=== PATIENT | female | born 1960 | race Caucasian/White ===

== ENCOUNTER → 2016-12-25 | Outpatient (CLI) | payer OTHER ==
[~2016-12-25] MED LIST: DULO60CA6 PO; ESTR1TAB21 PO; HYDR50CA3 PO; IBUP400T22 PO
--- NOTE | 2016-12-26 18:51 | Diagnostic Imaging Report ---
EXAMINATION: Bilateral digital screening mammogram with CAD. The current study was also evaluated with a Computer Aided Detection (CAD) system. INDICATION: Screening. No current complaints stated on the questionnaire. COMPARISON: 12/21/14. FINDINGS: The breasts are composed of scattered fibroglandular densities. There are symmetric retroglandular breast implants seen. No mass, architectural distortion or suspicious cluster of calcification is noted. Allowing for technique and positional differences, no suspicious change is seen. IMPRESSION: No significant change. ACR BI-RADS Category 2: Benign findings. Result letter will be mailed to the patient. Note: At least 10% of breast cancer is not imaged by mammography. Dictated by: Dictated on workstation # [id number]
== END ==
LOC: RAD 11:30
PROVIDERS: ATTEND Nurse Practitioner
DX: Z12.31 Encounter for screening mammogram for malignant neoplasm of breast (principal)
CPT/HCPCS: 77067

== ENCOUNTER → 2017-09-22 | Outpatient (CLI) | payer OTHER ==
[2017-09-22 10:20] LABS: HEMOGLOBIN 14.1 G/DL (11.5-16.0); MEAN PLATELET VOLUME 9.2 FL (7.4-10.4); RED BLOOD COUNT 4.64 10^6/uL (4.35-5.85); RED CELL DISTRIBUTION WIDTH 12.9 % (10.0-14.5); WHITE BLOOD COUNT 5.3 10^3/uL (4.3-11.0)
[2017-09-22 10:47] LABS: ALANINE AMINOTRANSFERASE 33 U/L (0-55); ALBUMIN 4.3 GM/DL (3.2-4.5); ALKALINE PHOSPHATASE 67 U/L (40-136); BILIRUBIN,TOTAL 0.5 MG/DL (0.1-1.0); BUN/CREATININE RATIO 18; CALCIUM 9.6 MG/DL (8.5-10.1); CARBON DIOXIDE 23 MMOL/L (21-32); CHLORIDE 106 MMOL/L (98-107); CHOLESTEROL 235 MG/DL (< 200); GFR ESTIMATED > 60; GLUCOSE 86 MG/DL (70-105); HDL CHOLESTEROL 43 MG/DL (40-60); SODIUM 139 MMOL/L (135-145); TOTAL PROTEIN 7.9 GM/DL (6.4-8.2); TRIGLYCERIDES 185 MG/DL (<150); VLDL CHOLESTEROL 37 MG/DL (5-40)
[2017-09-22 11:07] LABS: FREE T4 (FREE THYROXINE) 1.21 NG/DL (0.70-1.48)
== END ==
LOC: LAB 09:54
PROVIDERS: ATTEND Internal Medicine Endocrinology, Diabetes & Metabolism
DX: R53.83 Other fatigue (principal); E66.9 Obesity, unspecified; E55.9 Vitamin D deficiency, unspecified; R73.9 Hyperglycemia, unspecified; E06.3 Autoimmune thyroiditis
CPT/HCPCS: 36415; 80053; 80061; 82306; 82607; 83036; 84439; 84443; 84480; 85027; 86376

== ENCOUNTER → 2018-01-02 | Outpatient (CLI) | payer OTHER ==
--- NOTE | 2018-01-02 13:34 | Diagnostic Imaging Report ---
INDICATION: Routine screening. COMPARISON is made with a prior exam from 12/25/2016 and 12/21/2014. 3D digital tomography bilateral with implants. History: Routine screening Technique: Bilateral 3D digital tomographic views with implants were obtained with [email or web address] and reviewed on a [employer] workstation. In addition, CAD - computer aided detection was utilized. A mammogram does not have 100% sensitivity and therefore a negative imaging study should not delay further work up of a suspicious abnormality. Patient information is entered into the [employer] reminder system using icomply with a target due date for the next screening mammogram. The patient will receive a reminder. "Our facility is accredited by the [employer] Mammography Program." Bilateral breast implants are again noted. Implant contours appear to be smooth. Scattered fibroglandular densities in both breasts are noted. There are calcifications along the implant shell. No dominant mass or malignant appearing microcalcifications are seen. The axillae are unremarkable. IMPRESSION: BI-RADS 2 No mammographic features suspicious for malignancy are identified. Dictated by: Dictated on workstation # [id number]
== END ==
LOC: RAD 09:15
PROVIDERS: ATTEND Nurse Practitioner
DX: Z12.31 Encounter for screening mammogram for malignant neoplasm of breast (principal)
CPT/HCPCS: 77067

== ENCOUNTER → 2018-06-10 | Outpatient (CLI) | payer OTHER ==
[2018-06-10 13:28] LABS: FREE T4 (FREE THYROXINE) 1.19 NG/DL (0.70-1.48)
== END ==
LOC: SDC 12:20
PROVIDERS: ATTEND Internal Medicine Endocrinology, Diabetes & Metabolism
DX: E55.9 Vitamin D deficiency, unspecified (principal); E06.3 Autoimmune thyroiditis
CPT/HCPCS: 36415; 82306; 84439; 84443; 84480

== ENCOUNTER → 2018-07-20 | Outpatient (CLI) | payer OTHER ==
[2018-07-20 16:18] LABS: BUN/CREATININE RATIO 17; CALCIUM 9.9 MG/DL (8.5-10.1); CARBON DIOXIDE 22 MMOL/L (21-32); CHLORIDE 104 MMOL/L (98-107); CREATININE SERUM 0.82 MG/DL (0.60-1.30); GFR ESTIMATED > 60; GLUCOSE 83 MG/DL (70-105); POTASSIUM 3.9 MMOL/L (3.6-5.0); SODIUM 136 MMOL/L (135-145)
== END ==
LOC: LAB 15:43
PROVIDERS: ATTEND Plastic Surgery
DX: Z01.812 Encounter for preprocedural laboratory examination (principal); Z01.82 Encounter for allergy testing
CPT/HCPCS: 36415; 80048

== ENCOUNTER → 2018-12-08 | Outpatient (CLI) | payer OTHER ==
--- NOTE | 2018-12-08 18:50 | Diagnostic Imaging Report ---
INDICATION: Pain 4 months duration FINDINGS: There is grade 1 degenerative anterolisthesis of L3 on L4 of about 2 mm. The remaining levels are aligned normally however there is diminished lumbar lordosis. In frontal projection the spine is held in slight rightward curvature which could be positional. No acute appearing endplate irregularity. There is sclerotic hypertrophy of the mid to lower lumbar facets, progressively more severe as we move caudally. Disc space narrowing greatest at the lumbosacral junction. Fracture could not be identified. IMPRESSION: Spondylosis, facet arthrosis, grade 1 listhesis and mild rightward convexity curvature. No acute appearing abnormality. Normal lumbar statures Dictated by: Dictated on workstation # [id number]
--- NOTE | 2018-12-08 19:20 | Diagnostic Imaging Report ---
INDICATION: Pain FINDINGS: There is no fracture, dislocation or acute appearing articular incongruity. The hip joint space is maintained. No avulsion. IMPRESSION: Unremarkable left hip radiographs. Dictated by: Dictated on workstation # [id number]
== END ==
LOC: RAD 15:36
PROVIDERS: ATTEND Family Medicine
DX: M47.816 Spondylosis without myelopathy or radiculopathy, lumbar region (principal); M43.16 Spondylolisthesis, lumbar region; M43.8X6 Other specified deforming dorsopathies, lumbar region; M25.552 Pain in left hip
CPT/HCPCS: 72100; 73502

== ENCOUNTER → 2018-12-09 | Outpatient (CLI) | payer OTHER ==
[2018-12-09 08:48] LABS: BASOPHILS % (AUTO) 1 % (0-10); EOSINOPHILS # (AUTO) 0.1 10^3/uL (0.0-0.3); EOSINOPHILS % (AUTO) 3 % (0-10); HEMATOCRIT 42 % (35-52); HEMOGLOBIN 14.1 G/DL (11.5-16.0); LYMPHOCYTES # (AUTO) 1.5 X 10^3 (1.0-4.0); LYMPHOCYTES % (AUTO) 33 % (12-44); MEAN CORPUSCULAR HEMOGLOBIN 30 PG (25-34); MEAN CORPUSCULAR HGB CONC 34 G/DL (32-36); MEAN CORPUSCULAR VOLUME 88 FL (80-99); MONOCYTES # (AUTO) 0.5 X 10^3 (0.0-1.0); MONOCYTES % (AUTO) 11 % (0-12); NEUTROPHILS # (AUTO) 2.4 X 10^3 (1.8-7.8); NEUTROPHILS % (AUTO) 53 % (42-75); PLATELET COUNT 399 10^3/uL (130-400); RED CELL DISTRIBUTION WIDTH 13.6 % (10.0-14.5); WHITE BLOOD COUNT 4.6 10^3/uL (4.3-11.0)
[2018-12-09 09:17] LABS: ALANINE AMINOTRANSFERASE 29 U/L (0-55); ALBUMIN 4.3 GM/DL (3.2-4.5); ALKALINE PHOSPHATASE 83 U/L (40-136); BILIRUBIN,TOTAL 0.7 MG/DL (0.1-1.0); BUN/CREATININE RATIO 22; CALCIUM 9.8 MG/DL (8.5-10.1); CARBON DIOXIDE 24 MMOL/L (21-32); CHLORIDE 110 MMOL/L (98-107); CHOLESTEROL 272 MG/DL (< 200); CREATININE SERUM 0.81 MG/DL (0.60-1.30); GFR ESTIMATED > 60; GLUCOSE 94 MG/DL (70-105); HDL CHOLESTEROL 52 MG/DL (40-60); POTASSIUM 4.3 MMOL/L (3.6-5.0); SODIUM 141 MMOL/L (135-145); TOTAL PROTEIN 7.6 GM/DL (6.4-8.2); TRIGLYCERIDES 102 MG/DL (<150); VLDL CHOLESTEROL 20 MG/DL (5-40)
[2018-12-09 09:38] LABS: FREE T4 (FREE THYROXINE) 1.25 NG/DL (0.70-1.48)
== END ==
LOC: LAB 08:21
PROVIDERS: ATTEND Family Medicine
DX: Z00.00 Encounter for general adult medical examination without abnormal findings (principal); I10 Essential (primary) hypertension; E55.9 Vitamin D deficiency, unspecified; R53.83 Other fatigue
CPT/HCPCS: 36415; 80053; 80061; 82306; 82728; 84439; 84443; 85025

== ENCOUNTER → 2019-06-18 | Outpatient (CLI) | payer OTHER ==
--- NOTE | 2019-06-18 10:56 | Diagnostic Imaging Report ---
Indication: Routine screening. Comparison is made with prior mammogram 01/02/2018 and 12/25/2016. 2-D and 3-D bilateral screening mammography was performed with CAD. Since prior study patient has had bilateral breast implants removed. Hyperdense nodule in the region of the axillary tail of the right breast is seen measuring 14 mm. There are smaller hyperdense nodules in the left breast lower aspect. A fairly well circumscribed hyperdense nodule is seen approximately 5 cm deep to the nipple at approximately 6:00 location. Axillae are unremarkable. No suspicious microcalcifications are seen. No other suspicious masses are seen. IMPRESSION: BI-RADS 0 Bilateral hyperdense masses, perhaps lymph nodes containing silicone. Additional views are recommended. ACR BI-RADS Category 0: Incomplete. (Needs additional imaging evaluation). Result letter will be mailed to the patient. Note: At least 10% of breast cancer is not imaged by mammography. Dictated by: Dictated on workstation # [id number]
== END ==
LOC: RAD 07:27
PROVIDERS: ATTEND Nurse Practitioner
DX: Z12.31 Encounter for screening mammogram for malignant neoplasm of breast (principal); Z01.419 Encounter for gynecological examination (general) (routine) without abnormal findings
CPT/HCPCS: 77067

== ENCOUNTER → 2019-06-24 | Outpatient (CLI) | payer OTHER ==
--- NOTE | 2019-06-24 08:39 | Diagnostic Imaging Report ---
INDICATION: Bilateral breast densities. Study is performed for further evaluation. Correlation is made with recent screening study from 06/18/2019. 2-D and 3-D bilateral diagnostic mammography was performed. This includes bilateral 90 degree lateral view as well as a right exaggerated CC view as well as spot compression CC and ML and right MLO views. There is a hyperdense mass in the upper and slightly outer aspect of the right breast, posterior depth, suggestive of a lymph node. This may contain silicone. There are 2 tiny densities in the left breast. One density is 5 cm from the nipple inferiorly approximately 6:00 location. A 2nd tiny density is more posterior in the lower and slightly inner left breast 7 cm from the nipple. These are hyperdense as well and may represent silicone lymph nodes. No suspicious calcifications are seen. IMPRESSION: BI-RADS Category 0 Bilateral hyperdense masses suggestive of silicone lymphadenopathy. Further evaluation with ultrasound is recommended and will be performed today. ACR BI-RADS Category 0: Incomplete. (Needs additional imaging evaluation). Result letter will be mailed to the patient. Note: At least 10% of breast cancer is not imaged by mammography. Dictated by: Dictated on workstation # [id number]
--- NOTE | 2019-06-24 10:37 | Diagnostic Imaging Report ---
INDICATION: Bilateral breast densities. Correlation is made with diagnostic mammogram earlier the same day and screening mammogram from 06/18/2019. Right breast: There is a circumscribed mass at the 10:00 location of the right breast, 8 cm from the nipple measuring 17 mm x 15 mm x 9 mm. This does shows a moderate amount of internal echogenicity and most likely represents a lymph node. No internal vascularity is seen. This likely accounts for the hyperdense mass noted mammographically. Left breast: There are 2 small circumscribed hypoechoic masses in the left breast corresponding with the mammographic densities. 1st lesion is at the 6:00 location, 5 cm from the nipple measuring 6 mm x 4 mm x 4 mm. This demonstrates some posterior acoustic enhancement and may represent small cysts. A 2nd nodule is more deep in the left breast 9:00 location approximately 6 cm from the nipple measuring 7 mm x 5 mm x 6 mm. This is more difficult to characterize due to its deep nature but may represent a small cyst as well. No other abnormalities are seen. IMPRESSION: BI-RADS 3 Bilateral breast nodules. These all have fairly benign characteristics but follow-up bilateral mammogram and bilateral breast ultrasound in 6 months is recommended to confirm stability. ACR BI-RADS Category 3: Probably benign findings. Dictated by: Dictated on workstation # [id number]
== END ==
LOC: RAD 08:05
PROVIDERS: ATTEND Nurse Practitioner
DX: N63.10 Unspecified lump in the right breast, unspecified quadrant (principal); N63.20 Unspecified lump in the left breast, unspecified quadrant
CPT/HCPCS: 76642; 77066

== ENCOUNTER → 2019-07-09 | Outpatient (CLI) | payer OTHER ==
[2019-07-09 09:59] LABS: CHOLESTEROL 175 MG/DL (< 200); HDL CHOLESTEROL 51 MG/DL (40-60); TRIGLYCERIDES 84 MG/DL (<150); VLDL CHOLESTEROL 17 MG/DL (5-40)
== END ==
LOC: LAB 09:25
PROVIDERS: ATTEND Family Medicine
DX: Z13.220 Encounter for screening for lipoid disorders (principal); I10 Essential (primary) hypertension
CPT/HCPCS: 36415; 80061

== ENCOUNTER → 2019-07-13 | Outpatient (CLI) | payer OTHER ==
[2019-07-13 08:45] LABS: FREE T4 (FREE THYROXINE) 1.16 NG/DL (0.70-1.48)
== END ==
LOC: LAB 07:45
PROVIDERS: ATTEND Internal Medicine Endocrinology, Diabetes & Metabolism
DX: E55.9 Vitamin D deficiency, unspecified (principal); E06.3 Autoimmune thyroiditis
CPT/HCPCS: 36415; 82306; 84439; 84443; 84480; 86376

== ENCOUNTER → 2019-10-07 | Outpatient (CLI) | payer OTHER ==
[2019-10-07 12:58] LABS: ALANINE AMINOTRANSFERASE 35 U/L (0-55); ALBUMIN 4.6 GM/DL (3.2-4.5); ALKALINE PHOSPHATASE 84 U/L (40-136); BILIRUBIN,TOTAL 0.4 MG/DL (0.1-1.0); BUN/CREATININE RATIO 13; CALCIUM 9.8 MG/DL (8.5-10.1); CARBON DIOXIDE 19 MMOL/L (21-32); CHLORIDE 108 MMOL/L (98-107); CREATININE SERUM 0.76 MG/DL (0.60-1.30); GFR ESTIMATED > 60; GLUCOSE 96 MG/DL (70-105); SODIUM 139 MMOL/L (135-145); TOTAL PROTEIN 8.1 GM/DL (6.4-8.2)
--- NOTE | 2019-10-07 13:24 | Diagnostic Imaging Report ---
PROCEDURE: US Renal Bilateral. TECHNIQUE: Multiple real-time grayscale images were obtained over the kidneys in various projections bilaterally. INDICATION: Gross hematuria and back pain. FINDINGS: Right kidney measures 9.7 x 5.0 x 4.1 cm and the left kidney measures 10.8 x 5.0 x 5.6 cm. There are several echogenic foci within the right kidney, suggestive of nonobstructing calculi. Largest measures 4 mm. No hydronephrosis is seen. Left kidney is unremarkable. The cortical thickness and echogenicity is normal. IMPRESSION: Nonobstructing right renal calculi. No hydronephrosis is detected. Dictated by: Dictated on workstation # [id number]
== END ==
LOC: RAD 12:26
PROVIDERS: ATTEND Nurse Practitioner Family
DX: N20.0 Calculus of kidney (principal); R31.0 Gross hematuria
CPT/HCPCS: 36415; 76770; 80053; 80069

== ENCOUNTER → 2019-10-14 | Outpatient (CLI) | payer OTHER ==
--- NOTE | 2019-10-14 14:18 | Diagnostic Imaging Report ---
PATIENT NAME: Noelle SPANGLER INDICATION: Dark urine, pain on left side. TECHNIQUE: Single supine view of the abdomen 12:40 PM CORRELATION STUDY: None FINDINGS: Cholecystectomy clips in the right upper quadrant. There are 2 small punctate calcifications in the left hemipelvis, either of which could potentially reflect a small distal ureteral stone. Bowel gas pattern appearing nonobstructed. Likely prior hernia repair surgery over the pubic rami/symphysis. Mild rightward curvature of thoracolumbar spine. IMPRESSION: 1. Small punctate calcifications left hemipelvis. Either of these could potentially reflect a distal left ureteral stone. Given symptoms, if further imaging evaluation desired, renal colic CT imaging would be recommended Dictated by: Dictated on workstation # [id number]
== END ==
LOC: RAD 12:07
PROVIDERS: ATTEND Urology
DX: N20.0 Calculus of kidney (principal)
CPT/HCPCS: 74018

== ENCOUNTER → 2019-10-15 | Outpatient (CLI) | payer OTHER ==
--- NOTE | 2019-10-15 14:42 | Diagnostic Imaging Report ---
PROCEDURE: CT abdomen and pelvis without contrast. TECHNIQUE: Multiple contiguous axial images were obtained through the abdomen and pelvis without the use of intravenous contrast. Auto Exposure Controls were utilized during the CT exam to meet ALARA standards for radiation dose reduction. INDICATION: Hematuria. History of right-sided kidney stones. COMPARISON: None. FINDINGS: Included portions of the lung bases are clear. Note is made of partially visualized fluid collection in the inferior right breast that measures 1.8 x 4.4 cm (image 1, series 2). CT ABDOMEN: Normal appendix cannot be adequately identified, but there is no pericecal inflammation. Small bowel loops are nondistended. Small calculus is identified at the left UPJ and measures 3 mm in diameter (image 32, series 2). Despite this, there is no hydronephrosis or other evidence of obstruction. No other renal or ureteral calculi are seen on either side. Kidneys have an otherwise unremarkable noncontrast CT appearance. Liver is diffusely hypodense on this noncontrast exam consistent with underlying hepatic steatosis. The adrenal glands, spleen, and pancreas have an unremarkable noncontrast CT appearance. There is no loculated fluid collection, free fluid, nor free air within the abdomen. No abnormal mesenteric or retroperitoneal adenopathy is seen. Mild scattered calcified aortic and arterial atherosclerosis is noted. Osseous structures show no acute abnormalities. CT PELVIS: Urinary bladder is unopacified and nondistended. No calculi are seen within the urinary bladder. There is no loculated fluid collection, free fluid, nor free air within the pelvis. No abnormal lymph nodes are identified. Osseous structures show no acute abnormalities. IMPRESSION: 1. Small 3 mm calculus at the left UPJ without significant proximal hydronephrosis. 2. Hepatic steatosis. 3. Partially visualized fluid collection within the inferior right breast. Correlation with surgical history is recommended. If further evaluation is indicated, mammogram and ultrasound is advised. Dictated by: Dictated on workstation # [id number]
== END ==
LOC: RAD 13:03
PROVIDERS: ATTEND Urology
DX: N20.0 Calculus of kidney (principal); K76.0 Fatty (change of) liver, not elsewhere classified
CPT/HCPCS: 74176

== ENCOUNTER 2020-01-19 14:30 | Outpatient (RCR) | payer OTHER ==
[2020-01-13 10:08] LABS: BASOPHILS % (AUTO) 1 % (0-10); EOSINOPHILS # (AUTO) 0.1 10^3/uL (0.0-0.3); EOSINOPHILS % (AUTO) 1 % (0-10); HEMATOCRIT 43 % (35-52); HEMOGLOBIN 14.5 G/DL (11.5-16.0); LYMPHOCYTES # (AUTO) 1.6 X 10^3 (1.0-4.0); LYMPHOCYTES % (AUTO) 39 % (12-44); MEAN CORPUSCULAR HEMOGLOBIN 30 PG (25-34); MEAN CORPUSCULAR HGB CONC 34 G/DL (32-36); MEAN CORPUSCULAR VOLUME 90 FL (80-99); MEAN PLATELET VOLUME 8.9 FL (7.4-10.4); MONOCYTES # (AUTO) 0.3 X 10^3 (0.0-1.0); MONOCYTES % (AUTO) 8 % (0-12); NEUTROPHILS # (AUTO) 2.1 X 10^3 (1.8-7.8); NEUTROPHILS % (AUTO) 51 % (42-75); PLATELET COUNT 375 10^3/uL (130-400); RED CELL DISTRIBUTION WIDTH 13.7 % (10.0-14.5); WHITE BLOOD COUNT 4.1 10^3/uL (4.3-11.0)
[2020-01-13 10:35] LABS: ALANINE AMINOTRANSFERASE 30 U/L (0-55); ALBUMIN 4.5 GM/DL (3.2-4.5); ALKALINE PHOSPHATASE 76 U/L (40-136); BILIRUBIN,TOTAL 0.5 MG/DL (0.1-1.0); BUN/CREATININE RATIO 20; CALCIUM 9.6 MG/DL (8.5-10.1); CARBON DIOXIDE 24 MMOL/L (21-32); CHLORIDE 104 MMOL/L (98-107); CHOLESTEROL 194 MG/DL (< 200); CREATININE SERUM 0.82 MG/DL (0.60-1.30); GFR ESTIMATED > 60; GLUCOSE 96 MG/DL (70-105); HDL CHOLESTEROL 59 MG/DL (40-60); MAGNESIUM 2.1 MG/DL (1.6-2.4); PHOSPHORUS 3.3 MG/DL (2.3-4.7); POTASSIUM 4.1 MMOL/L (3.6-5.0); SODIUM 139 MMOL/L (135-145); TOTAL PROTEIN 7.8 GM/DL (6.4-8.2); TRIGLYCERIDES 109 MG/DL (<150); URIC ACID 7.2 MG/DL (2.6-7.2); VLDL CHOLESTEROL 22 MG/DL (5-40)
[2020-01-13 10:57] LABS: FREE T4 (FREE THYROXINE) 1.15 NG/DL (0.70-1.48)
== END 2020-04-12 | disposition home or self-care (01) ==
LOC: LAB 14:30 → EDSTATUS 14:48
PROVIDERS: ATTEND Family Medicine
DX: Z00.00 Encounter for general adult medical examination without abnormal findings (principal); E78.5 Hyperlipidemia, unspecified; E03.9 Hypothyroidism, unspecified; R53.83 Other fatigue; I10 Essential (primary) hypertension; E55.9 Vitamin D deficiency, unspecified; G62.9 Polyneuropathy, unspecified; Z83.2 Family history of diseases of the blood and blood-forming organs and certain disorders involving the immune mechanism
CPT/HCPCS: 36415; 80053; 80061; 82306; 82728; 83036; 83540; 83735; 83970; 84100; 84255; 84439; 84443; 84550; 85025

== ENCOUNTER → 2020-01-26 | Outpatient (CLI) | payer OTHER ==
[2020-01-26 12:11] LABS: ALBUMIN 4.4 GM/DL (3.2-4.5); CHLORIDE 108 MMOL/L (98-107); POTASSIUM 4.1 MMOL/L (3.6-5.0); SODIUM 140 MMOL/L (135-145)
[2020-01-26 12:12] LABS: CALCIUM 9.3 MG/DL (8.5-10.1)
[2020-01-26 12:13] LABS: GLUCOSE 89 MG/DL (70-105)
[2020-01-26 12:14] LABS: TOTAL PROTEIN 7.6 GM/DL (6.4-8.2)
[2020-01-26 12:15] LABS: BILIRUBIN,TOTAL 0.5 MG/DL (0.1-1.0); CARBON DIOXIDE 23 MMOL/L (21-32)
[2020-01-26 12:17] LABS: ALKALINE PHOSPHATASE 75 U/L (40-136); CREATININE SERUM 0.77 MG/DL (0.60-1.30); GFR ESTIMATED > 60; PHOSPHORUS 3.4 MG/DL (2.3-4.7)
[2020-01-26 12:18] LABS: BUN/CREATININE RATIO 17
[2020-01-26 12:20] LABS: ALANINE AMINOTRANSFERASE 27 U/L (0-55); MAGNESIUM 2.3 MG/DL (1.6-2.4)
== END ==
LOC: LAB 11:22
PROVIDERS: ATTEND Internal Medicine Endocrinology, Diabetes & Metabolism
DX: R79.89 Other specified abnormal findings of blood chemistry (principal)
CPT/HCPCS: 36415; 80053; 83735; 83970; 84100

== ENCOUNTER → 2020-02-08 | Outpatient (CLI) | payer OTHER ==
--- NOTE | 2020-02-08 11:44 | Diagnostic Imaging Report ---
INDICATION: Postmenopausal screening for osteoporosis. COMPARISON: None FINDINGS: AP Spine L1-L4: [BMD (g/cm2): 1.006] [T-Score: -1.6] [Z-Score: -1.2] [BMD Previous: 1.199] [BMD % Change: -16.1] LT Hip Neck: [BMD (g/cm2): 0.820] [T-Score: -1.6] [Z-Score: -0.8] LT Hip Total: [BMD (g/cm2):0.839] [T-Score:-1.3] [Z-Score: -1.0] [BMD Previous: 0.944] [BMD % Change: -11.1] RT Hip Neck: [BMD (g/cm2):0.815] [T-Score:-1.6] [Z-Score:-0.9] RT Hip Total: [BMD (g/cm2):0.810] [T-score:-1.6] [Z-Score:-1.2] [BMD Previous:0.921] [BMD % Change:-12.1] *Indicates significant change from prior examination based on 95% confidence level. World Health Organization criteria for BMD interpretation classify patients as Normal (T-score at or above -1.0), Osteopenic (T-score between -1.0 and -2.5) or Osteoporotic (T-score at or below -2.5). LIMITATIONS AND MODIFICATION: None. FRACTURE RISK (FRAX SCORE): The ten year probability of (%): Major Osteoporotic Fracture: [7.4] Hip Fracture: [0.6] IMPRESSION: 1. Osteopenia (Low bone mass). 2. Baseline examination. 3. See below National Osteoporosis Foundation guidelines on when to potentially initiate pharmacologic therapy. Based on the National Osteoporosis Foundation Guidelines, pharmacologic treatment should be initiated in any of the following, unless clinical conditions suggest otherwise: * Any patient with prior fragility fracture of the hip or vertebrae. A spine fracture indicates 5X risk for subsequent spine fracture and 2X risk for subsequent hip fracture. * Osteoporosis (T-score <-2.5). * Postmenopausal women and men age 50 and older with low bone mass/osteopenia (T-score between -1.0 and -2.5) by DXA and 10-year major osteoporotic fracture greater than 20% or a 10-year probability of hip fracture greater than 3%. These fracture risks are supplied above in the FRAX score, if applicable. * Clinician judgement and/or patient preferences may indicate treatment for people with 10-year fracture probabilities above or below these levels. Dictated by: Dictated on workstation # [id number]
== END ==
LOC: RAD 10:08
PROVIDERS: ATTEND Internal Medicine Endocrinology, Diabetes & Metabolism
DX: Z13.820 Encounter for screening for osteoporosis (principal); M85.80 Other specified disorders of bone density and structure, unspecified site; R79.89 Other specified abnormal findings of blood chemistry; Z78.0 Asymptomatic menopausal state
CPT/HCPCS: 77080

== ENCOUNTER → 2020-03-09 | Outpatient (CLI) | payer OTHER ==
[~2020-03-09] MED LIST changes: +HOLD METFORMIN - RECEIVED CONTRAST 20 ML VIAL IV SCH; +IOHEXOL 350 MG/ML 100 ML (OMNIPAQUE 350) VIAL IV ONE; +NS 100 ML (IVPB) BAG IV ONE
--- NOTE | 2020-03-09 08:54 | Diagnostic Imaging Report ---
PROCEDURE: CT neck soft tissue with contrast. TECHNIQUE: Multiple contiguous axial images were obtained through the neck after the administration of contrast. Auto Exposure Controls were utilized during the CT exam to meet ALARA standards for radiation dose reduction. INDICATION: Elevated parathyroid hormone. Hypercalcemia. COMPARISON: None FINDINGS: Normal thyroid gland. No enhancing mass about the thyroid or upper mediastinum suspicious for a parathyroid adenoma. No fluid collections or lymphadenopathy in the neck. The pharyngeal and laryngeal soft tissues are symmetric bilaterally with no suspicious mass or enhancement. Normal floor of the mouth, tongue base and epiglottis. No retropharyngeal fluid. The major salivary glands are unremarkable. The cervical carotid and vertebral arteries are grossly patent on this non-angiographic exam. The visualized intracranial contents are negative. Paranasal sinuses and mastoids are clear. Normal alignment of the temporomandibular joints. Mild spondylotic changes in the cervical spine without acute findings. The lung apices are clear. IMPRESSION: 1. No acute CT findings in the neck. 2. No enhancing mass suspicious for a parathyroid adenoma in the neck or upper mediastinum. Dictated by: Dictated on workstation # [id number]
== END ==
LOC: RAD 07:49
PROVIDERS: ATTEND Internal Medicine Endocrinology, Diabetes & Metabolism
DX: E83.52 Hypercalcemia (principal)
CPT/HCPCS: 70491

== ENCOUNTER → 2020-03-27 | Outpatient (CLI) | payer OTHER ==
[~2020-03-27] MED LIST changes: -HOLD METFORMIN - RECEIVED CONTRAST 20 ML VIAL IV SCH; -IOHEXOL 350 MG/ML 100 ML (OMNIPAQUE 350) VIAL IV ONE; -NS 100 ML (IVPB) BAG IV ONE
[2020-03-27 07:36] LABS: ALBUMIN 4.1 GM/DL (3.2-4.5); CHLORIDE 110 MMOL/L (98-107); POTASSIUM 3.9 MMOL/L (3.6-5.0); SODIUM 140 MMOL/L (135-145)
[2020-03-27 07:37] LABS: CALCIUM 8.9 MG/DL (8.5-10.1)
[2020-03-27 07:38] LABS: GLUCOSE 99 MG/DL (70-105); TOTAL PROTEIN 7.3 GM/DL (6.4-8.2)
[2020-03-27 07:40] LABS: BILIRUBIN,TOTAL 0.5 MG/DL (0.1-1.0); CARBON DIOXIDE 20 MMOL/L (21-32)
[2020-03-27 07:42] LABS: ALKALINE PHOSPHATASE 72 U/L (40-136); GFR ESTIMATED > 60; PHOSPHORUS 3.1 MG/DL (2.3-4.7)
[2020-03-27 07:43] LABS: BUN/CREATININE RATIO 25
[2020-03-27 07:45] LABS: ALANINE AMINOTRANSFERASE 19 U/L (0-55); MAGNESIUM 2.1 MG/DL (1.6-2.4)
== END ==
LOC: LAB 07:07
PROVIDERS: ATTEND Internal Medicine Endocrinology, Diabetes & Metabolism
DX: N20.0 Calculus of kidney (principal)
CPT/HCPCS: 36415; 80053; 82306; 82330; 83735; 83970; 84100

== ENCOUNTER → 2020-05-17 | Outpatient (CLI) | payer OTHER ==
[2020-05-17 10:18] LABS: ALANINE AMINOTRANSFERASE 23 U/L (0-55); ALBUMIN 4.3 GM/DL (3.2-4.5); ALKALINE PHOSPHATASE 80 U/L (40-136); BILIRUBIN,TOTAL 0.5 MG/DL (0.1-1.0); BUN/CREATININE RATIO 14; CALCIUM 9.5 MG/DL (8.5-10.1); CARBON DIOXIDE 24 MMOL/L (21-32); CHLORIDE 109 MMOL/L (98-107); GFR ESTIMATED > 60; GLUCOSE 97 MG/DL (70-105); MAGNESIUM 1.8 MG/DL (1.6-2.4); POTASSIUM 3.9 MMOL/L (3.6-5.0); SODIUM 140 MMOL/L (135-145); TOTAL PROTEIN 7.8 GM/DL (6.4-8.2)
== END ==
LOC: SDC 08:56
PROVIDERS: ATTEND Internal Medicine Endocrinology, Diabetes & Metabolism
DX: E55.9 Vitamin D deficiency, unspecified (principal)
CPT/HCPCS: 36415; 80053; 82306; 83735; 83970; 84100

== ENCOUNTER → 2020-07-24 | Outpatient (CLI) | payer OTHER ==
[2020-07-24 12:23] LABS: CHLORIDE 106 MMOL/L (98-107); POTASSIUM 3.9 MMOL/L (3.6-5.0); SODIUM 138 MMOL/L (135-145)
[2020-07-24 12:24] LABS: CALCIUM 9.5 MG/DL (8.5-10.1)
[2020-07-24 12:25] LABS: GLUCOSE 87 MG/DL (70-105)
[2020-07-24 12:26] LABS: CARBON DIOXIDE 21 MMOL/L (21-32)
[2020-07-24 12:28] LABS: CREATININE SERUM 0.79 MG/DL (0.60-1.30); GFR ESTIMATED > 60
[2020-07-24 12:29] LABS: BUN/CREATININE RATIO 24
== END ==
LOC: LAB 11:52
PROVIDERS: ATTEND Internal Medicine Endocrinology, Diabetes & Metabolism
DX: E83.52 Hypercalcemia (principal); E55.9 Vitamin D deficiency, unspecified
CPT/HCPCS: 36415; 80048; 82306; 83970

== ENCOUNTER → 2020-08-28 | Outpatient (CLI) | payer OTHER ==
--- NOTE | 2020-08-28 15:29 | Diagnostic Imaging Report ---
INDICATION: Abnormal mammogram. CORRELATION is made with diagnostic mammogram from earlier the same day. At the 6:00 location of the left breast, 5 cm from the nipple, there is an area of somewhat ovoid increased echogenicity which may represent silicone. This measures 9 mm x 8 mm x 9 mm. No internal vascularity is seen. This most likely accounts for the area of ovoid density in the inferior portion of the left breast on mammography. No other sonographic abnormalities are seen. Specifically, no abnormality is identified to account for the density noted deep in the left breast and slightly medial. This most likely represent an area of silicone as well. No other abnormalities are seen. IMPRESSION: BI-RADS Category 3 Probable silicone at the 6:00 location, 5 cm from the nipple accounting for the ovoid density noted mammographically. The deeper density noted mammographically is not visualized sonographically. Continued follow-up left mammogram in 6 months is recommended to show continued stability. ACR BI-RADS Category 3: Probably benign findings. Result letter will be mailed to the patient. Note: At least 10% of breast cancer is not imaged by mammography. Dictated by: Dictated on workstation # [id number]
--- NOTE | 2020-08-28 16:10 | Diagnostic Imaging Report ---
Indication: Patient is status post bilateral breast implant removal. Patient has undergone seroma aspiration of the right breast in 2019 at [facility]. Study is performed for followup. Correlation is made with prior mammograms from 06/18/2019 and 01/02/2018. 2-D and 3-D bilateral diagnostic mammography was performed with CAD. Scattered fibroglandular densities are identified bilaterally. Previously noted implants have been removed. Minimal residual density in the far posterior right breast is seen consistent with known seroma. This has reduced in size since prior. There are 2 nodular densities in the left breast, a density noted in the lower slightly inner left breast 5 cm from the nipple is noted. There is a lobulated density in the far posterior left breast approximate 7 to 8 cm from the nipple and slightly inner. These have fairly benign characteristics but ultrasound of these areas is recommended. No malignant-appearing microcalcifications are seen. Axillae are unremarkable. IMPRESSION: BI-RADS Category 0 Nodular densities in the left breast, as described. Further evaluation with ultrasound is recommended and will be performed today. ACR BI-RADS Category 0: Incomplete. (Needs additional imaging evaluation). Result letter will be mailed to the patient. Note: At least 10% of breast cancer is not imaged by mammography. Dictated by: Dictated on workstation # [id number]
== END ==
LOC: RAD 12:46
PROVIDERS: ATTEND Nurse Practitioner
DX: N63.24 Unspecified lump in the left breast, lower inner quadrant (principal)
CPT/HCPCS: 76642; 77066; G0279; 77062

== ENCOUNTER → 2020-09-25 | Outpatient (CLI) | payer OTHER ==
[2020-09-25 08:04] LABS: ALANINE AMINOTRANSFERASE 36 U/L (0-55); ALBUMIN 4.3 GM/DL (3.2-4.5); ALKALINE PHOSPHATASE 68 U/L (40-136); BILIRUBIN,TOTAL 0.5 MG/DL (0.1-1.0); BUN/CREATININE RATIO 15; CALCIUM 9.5 MG/DL (8.5-10.1); CARBON DIOXIDE 21 MMOL/L (21-32); CHLORIDE 107 MMOL/L (98-107); CREATININE SERUM 0.84 MG/DL (0.60-1.30); GFR ESTIMATED > 60; GLUCOSE 97 MG/DL (70-105); PHOSPHORUS 3.3 MG/DL (2.3-4.7); SODIUM 139 MMOL/L (135-145); TOTAL PROTEIN 7.8 GM/DL (6.4-8.2)
== END ==
LOC: LAB 07:25
PROVIDERS: ATTEND Internal Medicine Endocrinology, Diabetes & Metabolism
DX: E83.52 Hypercalcemia (principal); E06.3 Autoimmune thyroiditis; R79.89 Other specified abnormal findings of blood chemistry
CPT/HCPCS: 36415; 80053; 82306; 83735; 83970; 84100; 84443

== ENCOUNTER → 2020-11-07 | Outpatient (CLI) | payer OTHER | LOC: LABNPT 05:59 | PROVIDERS: ATTEND Family Medicine | DX: Z01.812 Encounter for preprocedural laboratory examination (principal); Z20.822 Contact with and (suspected) exposure to COVID-19 | CPT/HCPCS: 87635 ==

== ENCOUNTER → 2021-01-18 | Outpatient (CLI) | payer OTHER ==
[2021-01-18 08:59] LABS: BASOPHILS % (AUTO) 1 % (0-10); EOSINOPHILS # (AUTO) 0.1 10^3/uL (0.0-0.3); EOSINOPHILS % (AUTO) 2 % (0-10); HEMATOCRIT 40 % (35-52); HEMOGLOBIN 13.4 g/dL (11.5-16.0); LYMPHOCYTES # (AUTO) 1.5 10^3/uL (1.0-4.0); LYMPHOCYTES % (AUTO) 33 % (12-44); MEAN CORPUSCULAR HEMOGLOBIN 31 pg (25-34); MEAN CORPUSCULAR HGB CONC 34 g/dL (32-36); MEAN CORPUSCULAR VOLUME 90 fL (80-99); MEAN PLATELET VOLUME 8.9 fL (9.0-12.2); MONOCYTES # (AUTO) 0.5 10^3/uL (0.0-1.0); MONOCYTES % (AUTO) 10 % (0-12); NEUTROPHILS # (AUTO) 2.5 10^3/uL (1.8-7.8); NEUTROPHILS % (AUTO) 54 % (42-75); PLATELET COUNT 353 10^3/uL (130-400); WHITE BLOOD COUNT 4.5 10^3/uL (4.3-11.0)
[2021-01-18 09:18] LABS: ALANINE AMINOTRANSFERASE 32 U/L (0-55); ALKALINE PHOSPHATASE 58 U/L (40-136); BILIRUBIN,TOTAL 0.5 MG/DL (0.1-1.0); BUN/CREATININE RATIO 24; CALCIUM 7.9 MG/DL (8.5-10.1); CARBON DIOXIDE 26 MMOL/L (21-32); CHLORIDE 103 MMOL/L (98-107); CHOLESTEROL 232 MG/DL (< 200); CREATININE SERUM 0.82 MG/DL (0.60-1.30); GFR ESTIMATED > 60; GLUCOSE 94 MG/DL (70-105); HDL CHOLESTEROL 41 MG/DL (40-60); MAGNESIUM 1.9 MG/DL (1.6-2.4); POTASSIUM 3.6 MMOL/L (3.6-5.0); SODIUM 137 MMOL/L (135-145); TOTAL PROTEIN 7.8 GM/DL (6.4-8.2); TRIGLYCERIDES 132 MG/DL (<150); VLDL CHOLESTEROL 26 MG/DL (5-40)
[2021-01-18 09:40] LABS: FREE T4 (FREE THYROXINE) 0.92 NG/DL (0.70-1.48)
== END ==
LOC: LAB 08:35
PROVIDERS: ATTEND Family Medicine
DX: Z00.00 Encounter for general adult medical examination without abnormal findings (principal); E03.9 Hypothyroidism, unspecified; M25.50 Pain in unspecified joint; I25.10 Atherosclerotic heart disease of native coronary artery without angina pectoris; R53.83 Other fatigue; Z78.0 Asymptomatic menopausal state
CPT/HCPCS: 36415; 80053; 80061; 82306; 82627; 82670; 83090; 83525; 83735; 84144; 84403; 84439; 84443; 84481; 85025; 86141

== ENCOUNTER → 2021-02-26 | Outpatient (CLI) | payer OTHER ==
[2021-02-26 16:27] LABS: ALBUMIN 4.4 GM/DL (3.2-4.5); CHLORIDE 100 MMOL/L (98-107); POTASSIUM 3.4 MMOL/L (3.6-5.0); SODIUM 136 MMOL/L (135-145)
[2021-02-26 16:29] LABS: CALCIUM 9.1 MG/DL (8.5-10.1)
[2021-02-26 16:30] LABS: GLUCOSE 81 MG/DL (70-105)
[2021-02-26 16:31] LABS: CARBON DIOXIDE 22 MMOL/L (21-32)
[2021-02-26 16:32] LABS: BILIRUBIN,TOTAL 0.5 MG/DL (0.1-1.0)
[2021-02-26 16:33] LABS: ALKALINE PHOSPHATASE 63 U/L (40-136); PHOSPHORUS 4.4 MG/DL (2.3-4.7)
[2021-02-26 16:34] LABS: CREATININE SERUM 0.85 MG/DL (0.60-1.30); GFR ESTIMATED > 60
[2021-02-26 16:35] LABS: BUN/CREATININE RATIO 26
[2021-02-26 16:36] LABS: ALANINE AMINOTRANSFERASE 25 U/L (0-55)
--- NOTE | 2021-02-26 17:36 | Diagnostic Imaging Report ---
INDICATION: History of nephrolithiasis. COMPARISON: 10/14/2019 FINDINGS: Single frontal radiographic view of the abdomen was obtained. Small bowel loops are nondistended. Mild to moderate colonic air and stool is noted. There is no large collection of free intraperitoneal air. No unexpected extraosseous calcifications or radiopaque foreign bodies are seen. Osseous structures show no acute abnormalities. IMPRESSION: 1. Nonobstructive small bowel gas pattern. 2. Mild to moderate colonic air and stool. Dictated by: Dictated on workstation # [id number]
== END ==
LOC: LAB 15:48
PROVIDERS: ATTEND Internal Medicine Endocrinology, Diabetes & Metabolism
DX: N20.0 Calculus of kidney (principal); E89.2 Postprocedural hypoparathyroidism; R73.9 Hyperglycemia, unspecified
CPT/HCPCS: 36415; 74018; 80053; 83036; 83970; 84100

== ENCOUNTER → 2021-03-05 | Outpatient (CLI) | payer OTHER ==
--- NOTE | 2021-03-05 13:38 | Diagnostic Imaging Report ---
INDICATION: Six-month followup left breast densities. COMPARISON: 08/28/2020 and 06/18/2019. TECHNIQUE: Unilateral left 2D and 3D diagnostic mammography was performed with CAD. FINDINGS: The inferiorly located density at mid depth in the left breast is stable. The more posteriorly located density near the chest wall also appears to be stable. These again may represent free silicone. No new mass is detected. No malignant appearing microcalcifications are identified. The left axilla is unremarkable. IMPRESSION: Stable left mammogram. Continued followup left mammogram in 6 months is recommended to show continued stability. ACR BI-RADS Category 3: Probably benign findings. Result letter will be mailed to the patient. Note: At least 10% of breast cancer is not imaged by mammography. Dictated by: Dictated on workstation # [id number]
== END ==
LOC: RAD 12:50
PROVIDERS: ATTEND Nurse Practitioner
DX: R92.2 Inconclusive mammogram (principal)
CPT/HCPCS: 77065; G0279

== ENCOUNTER → 2021-08-06 | Outpatient (CLI) | payer OTHER ==
[2021-08-06 12:02] LABS: ALBUMIN 4.1 GM/DL (3.2-4.5); BILIRUBIN,TOTAL 0.4 MG/DL (0.1-1.0); CALCIUM 7.7 MG/DL (8.5-10.1); CREATININE SERUM 0.79 MG/DL (0.60-1.30); PHOSPHORUS 4.2 MG/DL (2.3-4.7); POTASSIUM 4.1 MMOL/L (3.6-5.0); TOTAL PROTEIN 7.5 GM/DL (6.4-8.2)
== END ==
LOC: SDC 11:02
PROVIDERS: ATTEND Internal Medicine Endocrinology, Diabetes & Metabolism
DX: N20.0 Calculus of kidney (principal); E55.9 Vitamin D deficiency, unspecified; E89.2 Postprocedural hypoparathyroidism; E06.3 Autoimmune thyroiditis; E88.81 Metabolic syndrome and other insulin resistance; R79.89 Other specified abnormal findings of blood chemistry
CPT/HCPCS: 36415; 80053; 82306; 83036; 83970; 84100; 84443

== ENCOUNTER → 2023-01-17 | Outpatient (CLI) | payer OTHER | LOC: LAB 07:49 | PROVIDERS: ATTEND Internal Medicine Endocrinology, Diabetes & Metabolism | DX: E89.2 Postprocedural hypoparathyroidism (principal); N20.0 Calculus of kidney; R79.89 Other specified abnormal findings of blood chemistry; E55.9 Vitamin D deficiency, unspecified; E06.3 Autoimmune thyroiditis; E88.81 Metabolic syndrome and other insulin resistance | CPT/HCPCS: 36415; 82306; 83036 ==

== ENCOUNTER → 2023-01-17 | Outpatient (CLI) | payer OTHER ==
[2023-01-17 08:16] LABS: BASOPHILS # (AUTO) 0.1 10^3/uL (0.0-0.1); BASOPHILS % (AUTO) 1 % (0-10); EOSINOPHILS # (AUTO) 0.1 10^3/uL (0.0-0.3); EOSINOPHILS % (AUTO) 2 % (0-10); HEMATOCRIT 44 % (35-52); HEMOGLOBIN 14.7 g/dL (11.5-16.0); LYMPHOCYTES # (AUTO) 1.7 10^3/uL (1.0-4.0); LYMPHOCYTES % (AUTO) 34 % (12-44); MEAN CORPUSCULAR HEMOGLOBIN 30 pg (25-34); MEAN CORPUSCULAR HGB CONC 34 g/dL (32-36); MEAN CORPUSCULAR VOLUME 89 fL (80-99); MEAN PLATELET VOLUME 8.9 fL (9.0-12.2); MONOCYTES # (AUTO) 0.5 10^3/uL (0.0-1.0); MONOCYTES % (AUTO) 10 % (0-12); NEUTROPHILS # (AUTO) 2.6 10^3/uL (1.8-7.8); NEUTROPHILS % (AUTO) 52 % (42-75); PLATELET COUNT 367 10^3/uL (130-400)
[2023-01-17 08:34] LABS: POTASSIUM 3.7 MMOL/L (3.6-5.0)
[2023-01-17 08:35] LABS: ALBUMIN 4.2 GM/DL (3.2-4.5)
[2023-01-17 08:36] LABS: CALCIUM 9.6 MG/DL (8.5-10.1)
[2023-01-17 08:37] LABS: TOTAL PROTEIN 7.7 GM/DL (6.4-8.2)
[2023-01-17 08:39] LABS: BILIRUBIN,TOTAL 0.5 MG/DL (0.1-1.0)
[2023-01-17 08:41] LABS: CREATININE SERUM 0.91 MG/DL (0.60-1.30)
[2023-01-17 09:05] LABS: FREE T4 (FREE THYROXINE) 1.09 NG/DL (0.70-1.48)
== END ==
LOC: LAB 07:47
PROVIDERS: ATTEND Family Medicine
DX: Z00.00 Encounter for general adult medical examination without abnormal findings (principal); E78.5 Hyperlipidemia, unspecified; E21.3 Hyperparathyroidism, unspecified
CPT/HCPCS: 36415; 80053; 80061; 83970; 84439; 84443; 85025